=== PATIENT | female | born 1965 | race Caucasian/White ===

== ENCOUNTER → 2021-09-28 16:12 | Outpatient (CLI) | payer OTHER, SELFPAY ==
[2021-09-28 18:00] LABS: COVID19 -Nasal RAPID Negative (Negative)
== END ==
PROVIDERS: PCP Physician Assistant; Visit Provider Obstetrics & Gynecology
DX: Z01.812 Encounter for preprocedural laboratory examination (principal); Z20.822 Contact with and (suspected) exposure to COVID-19
CPT/HCPCS: 87635

== ENCOUNTER 2021-10-01 09:58 | Day surgery (SDC) | payer OTHER, SELFPAY ==
[2021-09-28 08:31] VITALS: BMI 32.5
[2021-10-01] VITALS (8 sets, daily range): BP systolic 132–165; BP diastolic 56–94; PULSE 75–84; RESP 12–18; TEMP 36.1–37.3; O2SAT 94–97; BMI 32.5
--- NOTE | 2021-10-01 | PATH_ITS ---
[facility] Accession Number: [id number] . 01 Material submitted: . endometrium - ENDOMETRIAL CURETTINGS . 01 Clinical history: . HYSTEROSCOPY D/C . 02 Diagnosis: Endometrium, Curettage: Predominantly blood with scant endometrial, endocervical, and squamous epithelium; please see comment. No evidence of neoplasm. MRV 10/03/2021 1021 Local . 02 Comment: The sampled material is not sufficient ot exclude endometrial pathology. If clinical suspicion for an endometrial neoplasm persists, a repeat biopsy may be contributory. . 02 Electronically signed: . Bartolome Neil MD, PhD, Pathologist NPI- [id number] . 01 Gross description: . ENDOMETRIAL CURETTINGS: Received in formalin are minute fragments of mucoid and hemorrhagic material measuring 0.3 x 0.3 x 0.2 cm in aggregate. Submitted in toto in 1 cassette. /IZABELA 10/02/2021 0154 Local . 02 Pathologist provided ICD-10: N93.9 . 02 CPT . 257465 Specimen Comment: A courtesy copy of this report has been sent to [phone] Performed at: 01 [facility] [address] [facility], [place], [place] [id number] MD Johan Luque MD Phone: [phone] Performed at: 02 [facility] [address] [place], [place] [id number] MD Ruth Elias MD Phone: [phone]
[2021-10-01] MEDS: LACTATED RINGERS 1,000 ML 100 ML IV (10:36)
--- NOTE | 2021-10-01 11:14 | SUR.OPER ---
Lithotomy on padded OR bed, head on pillow, arms secured on padded arm boards at <90 degrees abduction. Legs secured in padded yellow fins stirrups.
--- NOTE | 2021-10-01 12:07 | PM.HP.1 ---
History of Present Illness History of Present Illness Date Patient Seen: 10/01/21 Time Patient Seen: 12:07 Chief complaint: HYSTEROSCOPY D&C Narrative: Patient is a 56-year-old 3 para 1 who presents for a D&C hysteroscopy due to endometrial hyperplasia and cervical stenosis. Unable to obtain an endometrial biopsy in the office. Patient History Medical History (Updated 10/01/21 @ 10:36 by Elissa Gaming RN) Abnormal Pap smear of cervix Allergies Asthma Endometriosis Fatty liver (~2009) Fibroids Genital warts GERD (gastroesophageal reflux disease) Heavy menstrual period Hypertension Hypothyroidism (~2009) Ovarian cyst Painful menstrual periods Panic disorder Rosacea Substance abuse Surgical History (Updated 09/28/21 @ 09:00 by Roxanne Sims RN) Anesthesia History of section (~05/28/00) History of laparotomy (2014) Peritonsillitis (~1985) Status post laparoscopic surgery (~2014) Family & Social History Family History (Updated 09/19/21 @ 21:58 by Yessi Ochoa) Father Hypertension Hyperlipidemia Mother Mental health problem Parkinson's disease Sister Hypertension Hyperlipidemia Mental health problem History of heart artery stent Multiple sclerosis Grandmother History of heart disease Hyperlipidemia Hypertension Family/Other No problems noted. Social History: household members none Tobacco & Substance use: Smoking Status Former smoker alcohol intake current alcohol intake frequency a few times a week Substance Use Type former substance user Meds Home Medications and Allergies Home Medications Medication Instructions Recorded Confirmed Type azelaic acid 15 % topical gel 1 applic TOPICAL BID 09/13/21 10/01/21 History levothyroxine 100 mcg capsule 100 mcg PO DAILY 09/13/21 10/01/21 History epinephrine 0.3 mg/0.3 mL 1 mg IM PRN PRN 10/01/21 10/01/21 History injection, auto-injector loratadine 10 mg tablet (Claritin) 10 mg PO DAILY 10/01/21 10/01/21 History Allergies Allergy/AdvReac Type Severity Reaction Status Date / Time No Known Drug Allergies Allergy Verified 10/01/21 10:21 Exam Vital Signs (past 8 hours): - 10/01/21 10:41 Temperature 99.1 F Pulse Rate 84 Respiratory Rate 16 Blood Pressure 138/56 L Pulse Oximetry 97 Oxygen Delivery Method Room Air Narrative Exam Narrative: HEENT: No thyromegaly, no anterior cervical or supraclavicular lymphadenopathy. Lungs:Clear to auscultation bilaterally, no wheezes. Cardiovascular: Regular rate and rhythm, no murmurs, rubs, or gallops. Abdomen: Well-healed scars. No hepatosplenomegaly. No masses palpable. External genitalia: Normal Vagina: Normal Cervix: Stenotic Bimanual exam: 6 Week size retroverted uterus. Mobile. Assessment & Plan Assessment & Plan narrative: Assessment: 56-year-old 3 para 1 with endometrial hyperplasia and a stenotic cervix Unable to obtain endometrial biopsy in the office Plan: D&C hysteroscopy The risks, benefits, and alternatives to the procedure were explained to the patient. The risks including bleeding, infection, and uterine perforation. She understands these risks and agrees to proceed. A full par Q was held and consent form was signed. COVID-19 COVID-19 status: Negative Result date/Date tested (Pos, Neg/Pending): 09/28/21 Time Spent With Patient Time with patient: less than 30 minutes Critical Care time: I spent a total of [] minutes of critical care time on this patient's care today; this time is exclusive of procedural time.
--- NOTE | 2021-10-01 12:10 | PM.PREOP ---
Pre-operative Note COVID-19 COVID-19 status: Negative Result date/Date tested (Pos, Neg/Pending): 09/28/21 Criteria for continued procedure: Non-surgical alternatives not available or appropriate per current SOC Interval Note History & Physical reviewed/Exam performed by Physician: Yes Changes to H&P: No H&P completed within 30 days and has changed as indicated here:: 10/01/21
--- NOTE | 2021-10-01 13:08 | P.OP_ITS ---
Operative Date/Time/Diagnoses Date of procedure: 10/01/21 Time of procedure: 13:08 Pre-op diagnosis: Endometrial hyperplasia Cervical stenosis Unable to perform endometrial biopsy in the office Post-op diagnosis: same Procedure & Clinicians Procedure: Procedures Operation Date: 10/01/21 11:45 Actual Procedure Side Surgeon p Hysteroscopy D&C, BX Hamida Mendez MD Indications: Endometrial hyperplasia Cervical stenosis Unable to perform endometrial biopsy in the office Surgeon: Hamida Mendez Anesthesia Type: General (LMA) Operative Notes Findings: 5 week size retroflexed uterus Both fallopian tube ostia observed Normal endometrial lining Closure Type: not applicable Specimen(s): endometrial curettings Estimated blood loss (mL): 5 Blood products transfused: none Procedure in detail: After informed consent was obtained, the patient was taken to the operating room where she was placed in the dorsal supine position. After adequate LMA general anesthesia was achieved, she was placed in the dorsal lithotomy position, and p repped and draped in the usual sterile fashion. A time-out was performed. A bivalve speculum was placed into the vagina. The Cytotec tablets were seen in the vagina and these were removed with a ring forceps. The cervix was cleaned x3 with Betadine. A single-tooth tenaculum was placed on the anterior lip of the cervix. Using the gold handled dilators the cervix was dilated to the # 5. The gradual plastic dilator was then used to further dilate. The hysteroscope passed easily into the endometrial cavity. Both fallopian tube ostia were observed. The uterus was severely retroflexed. There was no thickened lining noted. The hysteroscope was removed. Sharp curettage was performed yielding a moderate amount of endometrial curettings. The instruments were removed from the uterus. The single-tooth tenaculum was removed from the anterior lip of the cervix. The bivalve speculum was removed from the vagina. Sponge, lap, and instrument counts were correct x2. The patient tolerated the procedure well, and was taken to PACU in stable condition. Complications: none Post-operative Condition: stable Disposition: PACU Plan for aftercare: Home after recovery
[2021-10-01] MEDS: OXYCODONE/ACETAMINOPHEN 5/325 TABLET 1 TAB PO (13:38)
== END 2021-10-01 13:56 | disposition home or self-care (01) ==
PROVIDERS: PCP Physician Assistant Medical; Referring Provider Obstetrics & Gynecology; Visit Provider Obstetrics & Gynecology
PROC: 0UDB8ZZ Extraction of Endometrium, Via Natural or Artificial Opening Endoscopic (ICD-10-PCS; CPT 58558; principal; 2021-10-01 11:45)
DX: N85.00 Endometrial hyperplasia, unspecified (principal); N85.4 Malposition of uterus
CPT/HCPCS: 58558; J1100; J2405; J2704; J3010